=== PATIENT | male | born 1940 | race Two or more races ===

== ENCOUNTER 2020-09-06 13:06 | Outpatient (CLI) | payer OTHER | END 2020-09-06 13:21 | disposition home or self-care (01) | LOC: NUCLEAR 13:06 | PROVIDERS: ATTEND Psychiatry & Neurology Neurology | DX: G30.8 Other Alzheimer's disease (principal) | CPT/HCPCS: 78803; A9557 ==

== ENCOUNTER → 2022-10-09 07:10 | Outpatient (CLI) | payer OTHER | END | disposition home or self-care (01) | LOC: NUCLEAR 07:00 | PROVIDERS: ATTEND Psychiatry & Neurology Neurology | DX: G30.8 Other Alzheimer's disease (principal) | CPT/HCPCS: 78803; A9557 ==

== ENCOUNTER 2022-10-09 08:35 | Outpatient (CLI) | payer OTHER | END 2022-10-09 08:41 | disposition home or self-care (01) | LOC: TOM 08:35 | PROVIDERS: ATTEND Psychiatry & Neurology Neurology | DX: G30.8 Other Alzheimer's disease (principal); I65.9 Occlusion and stenosis of unspecified precerebral artery ==

== ENCOUNTER 2025-03-24 09:11 | Outpatient (CLI) | payer OTHER | END 2025-03-24 09:12 | disposition home or self-care (01) | LOC: NUCLEAR 09:11 | PROVIDERS: ATTEND Psychiatry & Neurology Neurology | DX: G30.8 Other Alzheimer's disease (principal) | CPT/HCPCS: 78803; A9557 ==